=== PATIENT | female | born 1985 | race Caucasian/White ===

== ENCOUNTER 2016-10-15 02:49 | Inpatient (IN) | payer MEDICAID ==
[2016-10-15] MEDS ORDERED: Sodium Chloride 0.9% 10 ML Syringe FLUSH PRN (03:36)
[2016-10-15] MEDS ORDERED: Oxytocin/Lactated Ringers 10 UNIT/1,000 ML BAG IV ONE (03:38)
[2016-10-15] MEDS ORDERED: Lactated Ringers 1,000 ML IV SCH (03:45)
[2016-10-15] MEDS ORDERED: diphenhydrAMINE 50 MG/ML SDV IVPUSH PRN (04:10)
[2016-10-15] MEDS ORDERED: Ondansetron 4 MG/2 ML SDV IVPUSH PRN (04:10)
[2016-10-15] MEDS ORDERED: fentaNYL 100 MCG/2 ML SDV EPIDUR PRN (04:10)
--- NOTE | 2016-10-15 04:10 | PCM.PREANE ---
Preanesthetic Assessment - Procedure Proposed Procedure: Labor Epidural - Anesthesia/Transfusion/Family Hx Anesthesia History: Prior Anesthesia Without Reaction Type of Anesthesia Reaction: Unknown Family History of Anesthesia Reaction: No Transfusion History: No Prior Transfusion(s) Type of Transfusion Reactions: Reports: Unknown Intubation History: Unknown - Review of Systems General: No Symptoms Pulmonary: No Symptoms Cardiovascular: No Symptoms Gastrointestinal: Other (GERD with ) Neurological: No Symptoms Other: Reports: Diabetes (Gestational DM) - Physical Assessment NPO Status Date: 10/14/16 NPO Status Time: 23:00 Respiratory Rate: 20 Height: 1.8 m Weight: 90.718 kg ASA Class: 2 Mental Status: Alert & Oriented x3 Airway Class: Mallampati = 2 Dentition: Reports: Normal Dentition Thyro-Mental Finger Breadths: 3 Mouth Opening Finger Breadths: 3 ROM/Head Extension: Full Lungs: Clear to auscultation, Normal respiratory effort Cardiovascular: Regular Rate, Regular Rhythm - Lab Values: Laboratory Last Values WBC 18.39 K/mm3 (3.98-10.04) H 10/15/16 03:55 RBC 4.62 M/mm3 (3.98-5.22) 10/15/16 03:55 Hgb 13.5 gm/L (11.2-15.7) 10/15/16 03:55 Hct 40.6 % (34.1-44.9) 10/15/16 03:55 MCV 87.9 fl (79.4-94.8) 10/15/16 03:55 MCH 29.2 pg (25.6-32.2) 10/15/16 03:55 MCHC 33.3 g/dl (32.2-35.5) 10/15/16 03:55 RDW Std Deviation 48.4 fL (36.4-46.3) H 10/15/16 03:55 Plt Count 320 K/mm3 (182-369) 10/15/16 03:55 MPV 10.2 fl (9.4-12.3) 10/15/16 03:55 Neut % (Auto) 76.0 % (34.0-71.1) H 10/15/16 03:55 Lymph % (Auto) 15.8 % (19.3-51.7) L 10/15/16 03:55 [place] % (Auto) 6.6 % (4.7-12.5) 10/15/16 03:55 Eos % (Auto) 0.7 (0.7-5.8) 10/15/16 03:55 Baso % (Auto) 0.2 % (0.1-1.2) 10/15/16 03:55 Neut # (Auto) 13.99 K/mm3 (1.56-6.13) H 10/15/16 03:55 Lymph # (Auto) 2.91 K/mm3 (1.18-3.74) 10/15/16 03:55 [place] # (Auto) 1.22 K/mm3 (0.24-0.36) H 10/15/16 03:55 Eos # (Auto) 0.12 K/mm3 (0.04-0.36) 10/15/16 03:55 Baso # (Auto) 0.03 K/mm3 (0.01-0.08) 10/15/16 03:55 - Allergies Allergies/Adverse Reactions: Allergies Allergy/AdvReac Type Severity Reaction Status Date / Time ketorolac tromethamine Allergy Rash Verified 10/15/16 03:54 [From Toradol] tramadol Allergy Rash Verified 10/15/16 03:54 cobalt Allergy Other Uncoded 01/09/16 12:49 nickel Allergy Other Uncoded 01/09/16 12:49 - Blood Blood Available: No Product(s) Available: None - Anesthesia Plan Pre-Op Medication Ordered: None - Acknowledgements Anesthesia Type Planned: Epidural Pt an Appropriate Candidate for the Planned Anesthesia: Yes Alternatives and Risks of Anesthesia Discussed w Pt/Guardian: Yes Pt/Guardian Understands and Agrees with Anesthesia Plan: Yes PreAnesthesia Questionnaire - Past Health History Medical/Surgical History: Denies Medical/Surgical History Other Gastrointestinal History: Crohn's disease - Past Surgical History HEENT Surgical History: Reports: Tonsillectomy GI Surgical History: Reports: Appendectomy Other Oncologic Surgeries/Procedures: skin CA removed at age 11. - SUBSTANCE USE Smoking Status *Q: Former Smoker Tobacco Use Within Last Twelve Months: Cigarettes Second Hand Smoke Exposure: Yes Days Per Week of Alcohol Use: 0 Recreational Drug Use History: No - HOME MEDS Home Medications: Home Meds . [No Known Home Meds] 08/20/15 [History] Amoxicillin/Potassium Clav [Augmentin 875-125 Tablet] 1 each PO BID #20 tablet 01/09/16 [Rx] oxyCODONE HCl/Acetaminophen [Percocet 5-325 mg Tablet] 1 - 2 each PO Q6H PRN # 10 tablet 01/09/16 [Rx] - CURRENT (IN HOUSE) MEDS Current Meds: Current Medications Lactated Ringer's (Ringers, Lactated) 1,000 mls @ 100 mls/hr IV ASDIRECTED YASHIRA Oxytocin/Lactated Ringer's (Pitocin In Lr 10 Units/1,000 Ml) 10 unit in 1,000 mls @ 500 mls/hr IV ONETIME ONE Stop: 10/15/16 05:37 Sodium Chloride (Saline Flush) 10 ml FLUSH ASDIRECTED PRN PRN Reason: Keep Vein Open
[2016-10-15] MEDS ORDERED: Bupivacaine/fentaNYL/NS 100 ML Bag EPIDUR SCH (04:15)
--- NOTE | 2016-10-15 05:32 | PCM.LDHP ---
L&D History of Present Illness - General Date of Service: 10/15/16 Admit Problem/Dx: Admission Diagnosis/Problem Admission Diagnosis/Problem Normal Source of Information: Patient History Limitations: Reports: No Limitations - History of Present Illness Introduction:: Patient is a 31 y/o at 39 4/7 wks who presented in labor. Has just completed epidural. Feeling need to push. - Related Data Allergies/Adverse Reactions: Allergies Allergy/AdvReac Type Severity Reaction Status Date / Time ketorolac tromethamine Allergy Rash Verified 10/15/16 03:54 [From Toradol] tramadol Allergy Rash Verified 10/15/16 03:54 cobalt Allergy Other Uncoded 01/09/16 12:49 nickel Allergy Other Uncoded 01/09/16 12:49 Home Medications: Home Meds . 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 Social & Family History - Tobacco Use Smoking Status *Q: Former Smoker Years of Tobacco use: 10 Packs/Tins Daily: 0.3 Used Tobacco, but Quit: No Second Hand Smoke Exposure: Yes - Alcohol Use Alcohol Use History: No Days Per Week of Alcohol Use: 0 - Recreational Drug Use Recreational Drug Use: No H&P Review of Systems - Review of Systems: Review Of Systems: See Below General: Reports: No Symptoms Pulmonary: Reports: No Symptoms Cardiovascular: Reports: No Symptoms Gastrointestinal: Reports: Abdominal Pain (contractions) Genitourinary: Reports: No Symptoms Musculoskeletal: Reports: No Symptoms L&D Exam - Exam Exam: See Below - Vital Signs Vital Signs: Last Vital Signs Temp Pulse Resp 20 10/15/16 04:10 BP Pulse Ox Weight: 90.718 kg - OB Specific Contraction Intensity: Moderate to Strong Movement: Active Heart Tones: Present Heart Tones per Min: 115 Heart Rate (FHR) Variability: Moderate (6-25 bmp) Presentation: Vertex - Fox Score Fox Score Cervix Position: Anterior Fox Score Consistency: Soft Fox Score Effacement: >80% Fox Score Dilation: > 5 cm Fox Score 's Station: +1, +2 Fox Score Total: 13 - Exam General: Alert, Oriented, Cooperative Lungs: Clear to Auscultation, Normal Respiratory Effort Cardiovascular: Regular Rate, Regular Rhythm Abdomen: Soft Genitourinary: Normal external exam Back Exam: Normal Inspection Extremities: Normal Inspection Skin: Warm, Dry, Intact - Patient Data Lab Results last 24 hrs: Laboratory Results - last 24 hr 10/15/16 10/15/16 Range/Units 03:55 03:55 WBC 18.39 H (3.98-10.04) K/mm3 RBC 4.62 (3.98-5.22) M/mm3 Hgb 13.5 (11.2-15.7) gm/L Hct 40.6 (34.1-44.9) % MCV 87.9 (79.4-94.8) fl MCH 29.2 (25.6-32.2) pg MCHC 33.3 (32.2-35.5) g/dl RDW Std Deviation 48.4 H (36.4-46.3) fL Plt Count 320 (182-369) K/mm3 MPV 10.2 (9.4-12.3) fl Neut % (Auto) 76.0 H (34.0-71.1) % Lymph % (Auto) 15.8 L (19.3-51.7) % [place] % (Auto) 6.6 (4.7-12.5) % Eos % (Auto) 0.7 (0.7-5.8) Baso % (Auto) 0.2 (0.1-1.2) % Neut # (Auto) 13.99 H (1.56-6.13) K/mm3 Lymph # (Auto) 2.91 (1.18-3.74) K/mm3 [place] # (Auto) 1.22 H (0.24-0.36) K/mm3 Eos # (Auto) 0.12 (0.04-0.36) K/mm3 Baso # (Auto) 0.03 (0.01-0.08) K/mm3 Manual Slide Review Normal smear Blood Type AB POSITIVE Gel Antibody Screen Negative Result Diagrams: 10/15/16 03:55 - Problem List (1) 39 weeks gestation of SNOMED Code(s): 87956450 ICD Code: Z3A.39 - 39 WEEKS GESTATION OF Status: Acute Current Visit: Yes (2) Gestational diabetes SNOMED Code(s): 59390735 ICD Code: O24.419 - GESTATIONAL DIABETES MELLITUS IN , UNSP CONTROL Status: Acute Current Visit: Yes Qualifiers: Gestational diabetes mellitus control: diet-controlled Trimester: third trimester Qualified Code(s): O24.410 - Gestational diabetes mellitus in , diet controlled (3) Normal labor SNOMED Code(s): 13368865 ICD Code: O80 - ENCOUNTER FOR FULL-TERM UNCOMPLICATED DELIVERY; Z37.9 - OUTCOME OF DELIVERY, UNSPECIFIED Status: Acute Current Visit: Yes Problem List Initiated/Reviewed/Updated: Yes Orders Last 24hrs: Active Orders 24 hr Category Date Time Status Patient Status Manage Transfer [TRANSFER] Routine ADT 10/15/16 05:24 Ordered Activity as Tolerated [RC] PFP Care 10/15/16 03:37 Active Communication Order [RC] ASDIRECTED Care 10/15/16 03:37 Active Notify Provider [RC] PRN Care 10/15/16 03:37 Active Peripheral IV Care [RC] . DIRECTED Care 10/15/16 03:37 Active Vital Signs [RC] PER UNIT ROUTINE Care 10/15/16 03:37 Active PATIENT RETYPE [BBK] Routine Lab 10/15/16 03:55 Results TYPE AND SCREEN [BBK] Routine Lab 10/15/16 03:55 Results Bupivacaine/fentaNYL/NS [fentaNYL/Bupivacaine/NS 2 MCG- Med 10/15/16 04:15 Active 0.125% 100 ML] 100 ml EPIDUR ASDIRECTED Lactated Ringers [Ringers, Lactated] 1,000 ml Med 10/15/16 03:45 Active IV ASDIRECTED Ondansetron [Zofran] Med 10/15/16 04:10 Active 4 mg IVPUSH ONETIME PRN Oxytocin/Lactated Ringers [Pitocin in LR 10 Units/1,000 Med 10/15/16 03:38 Active ML] 10 unit in 1,000 ml IV ONETIME Sodium Chloride 0.9% [Saline Flush] Med 10/15/16 03:36 Active 10 ml FLUSH ASDIRECTED PRN diphenhydrAMINE [Benadryl] Med 10/15/16 04:10 Active 25 mg IVPUSH Q6H PRN fentaNYL [Sublimaze] Med 10/15/16 04:10 Active 100 mcg EPIDUR Q3H PRN Electronic Heart Tones Ext w TOCO [WOMSER] Oth 10/15/16 03:37 Ordered Routine Electronic Heart Tones Internal [WOMSER] Per Unit Oth 10/15/16 03:37 Ordered Routine Peripheral IV Insertion Adult [OM.PC] Routine Oth 10/15/16 03:37 Ordered Resuscitation Status Routine Resus Stat 10/15/16 03:36 Ordered Medication Orders Diphenhydramine HCl (Benadryl) 25 mg IVPUSH Q6H PRN PRN Reason: Pruritis Fentanyl (Sublimaze) 100 mcg EPIDUR Q3H PRN PRN Reason: Pain Fentanyl/Bupivacaine HCl (Fentanyl/Bupivacaine/Ns 2 Mcg-0.125% 100 Ml) 100 ml EPIDUR ASDIRECTED YASHIRA Lactated Ringer's (Ringers, Lactated) 1,000 mls @ 100 mls/hr IV ASDIRECTED YASHIRA Oxytocin/Lactated Ringer's (Pitocin In Lr 10 Units/1,000 Ml) 10 unit in 1,000 mls @ 500 mls/hr IV ONETIME ONE Stop: 10/15/16 05:37 Ondansetron HCl (Zofran) 4 mg IVPUSH ONETIME PRN PRN Reason: Nausea/Vomiting Sodium Chloride (Saline Flush) 10 ml FLUSH ASDIRECTED PRN PRN Reason: Keep Vein Open Assessment/Plan Comment:: 31 y/o at 39 4/7 wks who presented in labor - complete quickly after admission * CBC and T&S * No antibiotics, GBS neg * Epidural in place * Delivery imminent
--- NOTE | 2016-10-15 05:36 | PCM.DEL ---
L & D Note - General Info Date of Service: 10/15/16 - Delivery Note Labor: spontaneous Delivery Outcome: Livebirth Delivery Method: Spontaneous Vaginal Delivery Delivery Mode: Spontaneous Presentation: Right Occiput Anterior (AVERY) Nuchal cord: present (Not able to be reduced) Anesthesia Type: Epidural Amniotic Fluid Description: Meconium stained Episiotomy Type: None Laceration: none Placenta: intact, spontaneous Cord: 3 vessels Estimated blood loss: 250 Score 1 min: 8 Score 5 min: 9 Delivery Comments (Free Text/Narrative):: Patient found to be complete. With maternal pushing effort head delivered from an AVERY presentation. Nuchal cord present, but tight and not able to be reduced. With gentle downward traction shoulders and body delivered. Cord clamped and cut. Baby handed to awaiting simulation developer given meconium stained fluid. Placenta allowed time to separate and expelled . Inspection of the perineum showed no lacerations - Patient Data Vitals - most recent: Last Vital Signs Temp Pulse Resp 20 10/15/16 04:10 BP Pulse Ox Weight - most recent: 90.718 kg Lab Results last 24 hrs: Laboratory Results - last 24 hr 10/15/16 10/15/16 Range/Units 03:55 03:55 WBC 18.39 H (3.98-10.04) K/mm3 RBC 4.62 (3.98-5.22) M/mm3 Hgb 13.5 (11.2-15.7) gm/L Hct 40.6 (34.1-44.9) % MCV 87.9 (79.4-94.8) fl MCH 29.2 (25.6-32.2) pg MCHC 33.3 (32.2-35.5) g/dl RDW Std Deviation 48.4 H (36.4-46.3) fL Plt Count 320 (182-369) K/mm3 MPV 10.2 (9.4-12.3) fl Neut % (Auto) 76.0 H (34.0-71.1) % Lymph % (Auto) 15.8 L (19.3-51.7) % [place] % (Auto) 6.6 (4.7-12.5) % Eos % (Auto) 0.7 (0.7-5.8) Baso % (Auto) 0.2 (0.1-1.2) % Neut # (Auto) 13.99 H (1.56-6.13) K/mm3 Lymph # (Auto) 2.91 (1.18-3.74) K/mm3 [place] # (Auto) 1.22 H (0.24-0.36) K/mm3 Eos # (Auto) 0.12 (0.04-0.36) K/mm3 Baso # (Auto) 0.03 (0.01-0.08) K/mm3 Manual Slide Review Normal smear Blood Type AB POSITIVE Gel Antibody Screen Negative Med Orders - Current: Current Medications Diphenhydramine HCl (Benadryl) 25 mg IVPUSH Q6H PRN PRN Reason: Pruritis Fentanyl (Sublimaze) 100 mcg EPIDUR Q3H PRN PRN Reason: Pain Fentanyl/Bupivacaine HCl (Fentanyl/Bupivacaine/Ns 2 Mcg-0.125% 100 Ml) 100 ml EPIDUR ASDIRECTED YASHIRA Lactated Ringer's (Ringers, Lactated) 1,000 mls @ 100 mls/hr IV ASDIRECTED YASHIRA Oxytocin/Lactated Ringer's (Pitocin In Lr 10 Units/1,000 Ml) 10 unit in 1,000 mls @ 500 mls/hr IV ONETIME ONE Stop: 10/15/16 05:37 Ondansetron HCl (Zofran) 4 mg IVPUSH ONETIME PRN PRN Reason: Nausea/Vomiting Sodium Chloride (Saline Flush) 10 ml FLUSH ASDIRECTED PRN PRN Reason: Keep Vein Open - Problem List & Annotations (1) 39 weeks gestation of SNOMED Code(s): 66196096 Code(s): Z3A.39 - 39 WEEKS GESTATION OF Status: Acute Current Visit: Yes (2) Gestational diabetes SNOMED Code(s): 94033329 Code(s): O24.419 - GESTATIONAL DIABETES MELLITUS IN , UNSP CONTROL Status: Acute Current Visit: Yes Qualifiers: Gestational diabetes mellitus control: diet-controlled Trimester: third trimester Qualified Code(s): O24.410 - Gestational diabetes mellitus in , diet controlled (3) Normal labor SNOMED Code(s): 05285238 Code(s): O80 - ENCOUNTER FOR FULL-TERM UNCOMPLICATED DELIVERY; Z37.9 - OUTCOME OF DELIVERY, UNSPECIFIED Status: Acute Current Visit: Yes (4) Vaginal delivery SNOMED Code(s): 876921721 Code(s): O80 - ENCOUNTER FOR FULL-TERM UNCOMPLICATED DELIVERY Status: Acute Current Visit: Yes - Problem List Review Problem List Initiated/Reviewed/Updated: Yes - My Orders Last 24 Hours: My Active Orders 10/15/16 03:36 Sodium Chloride 0.9% [Saline Flush] 10 ml FLUSH ASDIRECTED PRN Resuscitation Status Routine 10/15/16 03:37 Activity as Tolerated [RC] PFP Communication Order [RC] ASDIRECTED Notify Provider [RC] PRN Peripheral IV Care [RC] . DIRECTED Vital Signs [RC] PER UNIT ROUTINE Electronic Heart Tones Ext w TOCO [WOMSER] Routine Electronic Heart Tones Internal [WOMSER] Per Unit Routine Peripheral IV Insertion Adult [OM.PC] Routine 10/15/16 03:38 Oxytocin/Lactated Ringers [Pitocin in LR 10 Units/1,000 ML] 10 unit in 1,000 ml IV ONETIME 10/15/16 03:45 Lactated Ringers [Ringers, Lactated] 1,000 ml IV ASDIRECTED 10/15/16 03:55 PATIENT RETYPE [BBK] Routine TYPE AND SCREEN [BBK] Routine 10/15/16 05:24 Patient Status Manage Transfer [TRANSFER] Routine - Assessment Assessment:: 31 y/o G2 now P2002 PPD#0 from at 39 4/7 wks - Plan Plan:: * Fasting glucose tomorrow given history of GODMA, 2hr GTT at check * Routine cares * Encourage breast feeding
[2016-10-15] MEDS ORDERED: Acetaminophen 325 MG Tab PO PRN (06:08)
[2016-10-15] MEDS ORDERED: Docusate Sodium 100 MG Cap PO PRN (06:08)
[2016-10-15] MEDS: Ibuprofen 600 MG Tab PO PRN ×2 (09:10→14:22)
[2016-10-15] MEDS ORDERED: Witch Hazel Medicated Pads 100/Jar TOP PRN (09:30)
[2016-10-15] MEDS ORDERED: Benzocaine/Menthol 20%-0.5% Spray 56 GM Canister TOP PRN (09:30)
[2016-10-15] MEDS ORDERED: Bupivacaine 0.25% 10 ML SDV ONE (12:00)
--- NOTE | 2016-10-15 12:32 | PCM48HPAN ---
Post Anesthesia Note - EVALUATION WITHIN 48HRS OF ANESTHETIC Vital Signs in Normal Range: Yes Patient Participated in Evaluation: Yes Respiratory Function Stable: Yes Airway Patent: Yes Cardiovascular Function Stable: Yes Hydration Status Stable: Yes Pain Control Satisfactory: Yes Nausea and Vomiting Control Satisfactory: Yes Mental Status Recovered: Yes
[2016-10-15] MEDS: Acetaminophen/oxyCODONE 325-5 MG Tab PO PRN ×2 (16:36→20:47)
[2016-10-15] MEDS ORDERED: Lanolin 100% Cream 7 GM Tube TOP PRN (23:59)
[2016-10-16] MEDS: Acetaminophen/oxyCODONE 325-5 MG Tab PO PRN ×3 (00:49→10:52)
--- NOTE | 2016-10-16 07:40 | PCM.DCSUM1 ---
Discharge Summary - Hospital Course Free Text/Narrative:: Mark is a 31-year-old multigravida female who delivered on 10/15/2016. She delivered a viable male infant with Apgars of 8 and 9. She delivered in a spontaneous fashion with baby in a right occiput anterior position. She used epidural analgesia for pain control. The MX fluid was stained. She had no episiotomy [place] any lacerations. The umbilical cord was found to be moderately tight and was not reducible over the baby's head. Baby delivered without problems otherwise and the cord was clamped after delivery. 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 Umbilical cord had 3 vessels. Placenta appeared intact and complete. the patient has done well. She has struggled somewhat was nursing until just last one or 2 times. She did nurse with her first . She has had minimal lochia, is voiding well and has recovered from the epidural. She is desiring to be discharged home. - Discharge Data Discharge Date: 10/16/16 Discharge Disposition: Home, Self-Care 01 Condition: Good - Patient Instructions Diet: Regular Diet as Tolerated (Nursing diet with increase calories and calcium as directed) Activity: As Tolerated (No intercourse or tampons until bleeding resolves.) Driving: Do Not Drive (Not drive until feels adequately prepared to drive.) Showering/Bathing: May Shower (May take a bath the) Notify Provider of: Fever, Increased Pain, Swelling and Redness, Nausea and/or Vomiting - Discharge Plan Home Medications: Home Meds Acetaminophen/oxyCODONE [Percocet 325-5 MG] 2 tab PO Q4H PRN #20 tablet [Rx] Ibuprofen [IJD: Ibuprofen] 600 mg PO Q4H PRN #30 tablet 10/16/16 [Rx] Witch Charline [Tucks] 1 pad TOP ASDIRECTED PRN #30 pad 10/16/16 [Rx] Referrals: Joanie Phillips MD [Primary Care Provider] - (Return to see Dr. Phillips in 6 weeks.) - Discharge Summary/Plan Comment DC Time >30 min.: No Discharge Summary/Plan Comment: Discharge instructions: 1. Discharge home 2. Regular, high fiber, nursing diet with increase calories and calcium as directed. 3. Routine followup discussed with patient in detail. 4. Precautions given concern increased pain, bleeding, temperature, signs/ symptoms of DVT/PE 5. Medications per home medication as printed, discussed with and given to the patient 6. Return to clinic-Dr. Phillips at 6 weeks. Condition: Good Diagnosis: 39 week -delivered - Patient Data Vitals - Most Recent: Last Vital Signs Temp 36.6 C 10/16/16 04:20 Pulse 63 10/16/16 04:20 Resp 22 H 10/16/16 04:20 BP 100/54 L 10/16/16 04:20 Pulse Ox 97 10/16/16 04:20 Weight - Most Recent: 90.718 kg I&O - Last 24 hours: Intake & Output 10/15/16 10/16/16 10/16/16 22:59 06:59 14:59 Intake Total 0 Balance 0 Lab Results - Last 24 hrs: Laboratory Results - last 24 hr 10/15/16 10/16/16 Range/Units 03:55 06:30 POC Glucose 87 (70-105) mg/dL Blood Type AB POSITIVE Gel Antibody Screen Negative Med Orders - Current: Current Medications Benzocaine/Menthol (Dermoplast Pain Relief [place]) 1 gm TOP ASDIRECTED PRN PRN Reason: Pain Last Admin: 10/15/16 09:32 Dose: 1 applic Docusate Sodium (Colace) 100 mg PO BID PRN PRN Reason: Constipation Emollient Ointment (Lansinoh Hpa) 0 gm TOP ASDIRECTED PRN PRN Reason: Sore nipples Last Admin: 10/16/16 00:13 Dose: 1 tube Ibuprofen (Motrin) 600 mg PO Q4H PRN PRN Reason: Pain Last Admin: 10/15/16 14:22 Dose: 600 mg Oxycodone/Acetaminophen (Percocet 325-5 Mg) 2 tab PO Q4H PRN PRN Reason: Pain Last Admin: 10/16/16 05:33 Dose: 2 tab Witch Charline (Tucks) 1 pad TOP ASDIRECTED PRN PRN Reason: Pain Last Admin: 10/15/16 09:33 Dose: 1 applic Discontinued Medications Acetaminophen (Tylenol) 650 mg PO Q4H PRN PRN Reason: mild pain or fever Last Admin: 10/15/16 12:29 Dose: 650 mg Diphenhydramine HCl (Benadryl) 25 mg IVPUSH Q6H PRN PRN Reason: Pruritis Fentanyl (Sublimaze) 100 mcg EPIDUR Q3H PRN PRN Reason: Pain Fentanyl/Bupivacaine HCl (Fentanyl/Bupivacaine/Ns 2 Mcg-0.125% 100 Ml) 100 ml EPIDUR ASDIRECTED YASHIRA Lactated Ringer's (Ringers, Lactated) 1,000 mls @ 100 mls/hr IV ASDIRECTED [facility] Last Admin: 10/15/16 03:00 Dose: 100 mls/hr Oxytocin/Lactated Ringer's (Pitocin In Lr 10 Units/1,000 Ml) 10 unit in 1,000 mls @ 500 mls/hr IV ONETIME ONE Stop: 10/15/16 05:37 Last Admin: 10/15/16 05:07 Dose: 500 mls/hr Ondansetron HCl (Zofran) 4 mg IVPUSH ONETIME PRN PRN Reason: Nausea/Vomiting Sodium Chloride (Saline Flush) 10 ml FLUSH ASDIRECTED PRN PRN Reason: Keep Vein Open *Q Meaningful Use (DIS) - VTE *Q VTE Criteria *Q: - Stroke *Q Stroke Criteria *Q: - AMI *Q AMI Criteria *Q:
[2016-10-16 14:48] VITALS: BP 124/67
== END 2016-10-16 13:50 | disposition home or self-care (01) | DRG 775 ==
LOC: JD.OBCHECK 02:49 → JD.OB 02:53 → JD.OBCHECK 03:43 → JD.OB 03:44 → OBSVTOIN 05:07 → JD.OB 05:07
PROVIDERS: ADMIT Obstetrics & Gynecology; ATTEND Obstetrics & Gynecology
PROC: 10E0XZZ Delivery of Products of Conception, External Approach (ICD-10-PCS; principal; 2016-10-15)
DX: O24.420 Gestational diabetes mellitus in childbirth, diet controlled (principal); O69.1XX0 Labor and delivery complicated by cord around neck, with compression, not applicable or unspecified; O77.0 Labor and delivery complicated by meconium in amniotic fluid; Z3A.39 39 weeks gestation of pregnancy; Z37.0 Single live birth
CPT/HCPCS: 01967; 36415; 82962; 85025; 86850; 86900; 86901; A9270-GY; J2590; J7120

== ENCOUNTER 2017-03-26 19:40 | Emergency (ER) | payer MEDICAID ==
[2017-03-26 20:23] VITALS: BP 126/89
--- NOTE | 2017-03-26 21:37 | EDM.PDOC ---
ED HPI GENERAL MEDICAL PROBLEM - General Chief Complaint: ENT Problem Stated Complaint: TOOTH PAIN Time Seen by Provider: 03/26/17 21:19 Source of Information: Reports: Patient History Limitations: Reports: No Limitations - History of Present Illness INITIAL COMMENTS - FREE TEXT/NARRATIVE: Patient is a 31 y/o female who presents to the E.D. complaining of intermittent pain to the #29 tooth. Feels a nerve is exposed. Has been taking ibuprofen and tylenol with no improvements. Left Lower Tooth/Teeth Pain Score (Numeric/FACES): 8 - Related Data Allergies Allergy/AdvReac Type Severity Reaction Status Date / Time ketorolac tromethamine Allergy Rash Verified 10/15/16 03:54 [From Toradol] tramadol Allergy Rash Verified 10/15/16 03:54 cobalt Allergy Other Uncoded 01/09/16 12:49 nickel Allergy Other Uncoded 01/09/16 12:49 Home Meds: Home Meds Naproxen 500 mg PO BID #14 tablet 03/26/17 [Rx] Past Medical History - Past Health History Medical/Surgical History: Denies Medical/Surgical History Other Gastrointestinal History: Crohn's disease [employer] G[employer] History: Reports: - Past Surgical History HEENT Surgical History: Reports: Tonsillectomy GI Surgical History: Reports: Appendectomy, Colonoscopy, EGD Other Oncologic Surgeries/Procedures: skin CA removed at age 11. Social & Family History - Tobacco Use Smoking Status *Q: Current Every Day Smoker Years of Tobacco use: 10 Packs/Tins Daily: 0.5 Used Tobacco, but Quit: No Second Hand Smoke Exposure: Yes - Caffeine Use Caffeine Use: Reports: Tea - Alcohol Use Days Per Week of Alcohol Use: 0 - Recreational Drug Use Recreational Drug Use: No ED ROS ENT - Review of Systems Review Of Systems: See Below Constitutional: Reports: Decreased Appetite. Denies: Fever, Chills HEENT: Reports: Dental Pain GI/Abdominal: Denies: Nausea, Vomiting Musculoskeletal: Denies: Neck Pain Neurological: Denies: Headache ED EXAM, ENT - Physical Exam Exam: See Below Exam Limited By: No Limitations General Appearance: Alert, WD/WN, No Apparent Distress Ears: Hearing Grossly Normal Nose: Normal Inspection Mouth/Throat: Normal Inspection, Normal Gums, Normal Oropharynx, Dental Pain (# 29 tooth.), Dental Tenderness (#29 tooth). No: Dry Mucous Membrane, Gum Swelling, Pharyngeal Erythema, Tonsillar Erythema, Tonsillar Exudates, Trismus Head: Atraumatic, Normocephalic Neck: Normal Inspection, Supple Respiratory/Chest: No Respiratory Distress, No Accessory Muscle Use Neurological: Alert, Oriented, Normal Cognition Psychiatric: Normal Affect, Normal Mood Skin: Warm, Dry, Intact, Normal Color Course - Vital Signs Last Recorded V/S: Last Vital Signs Temp 98.6 F 03/26/17 20:22 Pulse 88 03/26/17 20:22 Resp 20 03/26/17 20:22 BP 126/89 03/26/17 20:22 Pulse Ox 97 03/26/17 20:22 - Re-Assessments/Exams Free Text/Narrative Re-Assessment/Exam: Patient has dental tenderness to the superior aspect of the tooth with gentle pressure with a tongue depressor. Patient does have some dental decay throughout her mouth. No gumline swelling. No concerns for an abscess at this point. Offered dental injection to which the patient refuses. Will discharge patient home with prescription for naproxen. She will call a dentist on Tuesday to schedule definitive treatment. Patient requested something stronger for the discomfort. At this point patient is doing well has intermittent sharp shooting sensation to the affected tooth. Instructed her to use Orajel and or clove oil. No narcotics will be discharged with the patient. Departure - Departure Time of Disposition: 21:35 Disposition: Home, Self-Care 01 Condition: Good Clinical Impression: Acute pulpitis - Discharge Information Prescriptions: Naproxen 500 mg PO BID #14 tablet Instructions: Tooth Injuries Referrals: PCP,None [Primary Care Provider] - Forms: ED Department Discharge Additional Instructions: Taken naproxen 500 mg twice a day with plenty of fluids and food. Refrain from chewing on the affected side. For additional pain relief can utilize Orajel and/ or clove oil. Call and make an appointment Tuesday with a dentist to be evaluated SHELIA for definitive treatment. See her PCP for further pain management. Return to ED for any new or worsening symptoms. Take tylenol 650mg every 6 hours for pain in addition to naproxen.
== END 2017-03-26 21:48 | disposition home or self-care (01) ==
LOC: JD.ED 19:40
DX: K04.01 Reversible pulpitis (principal); F17.210 Nicotine dependence, cigarettes, uncomplicated; Z88.6 Allergy status to analgesic agent; Z88.5 Allergy status to narcotic agent
CPT/HCPCS: 99282; 99283

== ENCOUNTER 2018-10-26 11:03 | Emergency (ER) | payer BC, MEDICAID ==
[2018-10-26 11:27] VITALS: BP 124/85
[2018-10-26] MEDS ORDERED: Ketorolac 60 MG/2 ML SDV IM ONE (12:07)
--- NOTE | 2018-10-26 12:12 | EDM.PDOC ---
ED HPI GENERAL MEDICAL PROBLEM - General Chief Complaint: General Stated Complaint: TOOTH PAIN Time Seen by Provider: 10/26/18 12:11 Source of Information: Reports: Patient History Limitations: Reports: No Limitations - History of Present Illness INITIAL COMMENTS - FREE TEXT/NARRATIVE: 33-year-old female presents for evaluation and treatment of tooth pain. Patient reports she has been experiencing dental pain since Tuesday. She states that she has some cracked teeth on the left upper side that cracked several months ago. Since Tuesday she has been experiencing pain to this area. She reports associated symptoms of nausea, dizziness, headaches, sore throat, sinus pain and facial swelling. She's not been to a dentist in several years and has no appointment at this point. She denies any bad taste in her mouth, fevers, chills , vomiting or any ear pain. Left Upper Cheek Pain Score (Numeric/FACES): 8 - Related Data Allergies Allergy/AdvReac Type Severity Reaction Status Date / Time No Known Allergies Allergy Verified 10/26/18 11:28 Home Meds: Home Meds Amoxicillin/Clavulanate K [Augmentin 875-125 MG] 1 tab PO BID #20 tab 10/26/18 [ Rx] Naproxen 500 mg PO BID PRN #14 tablet 10/26/18 [Rx] Past Medical History - Past Health History Medical/Surgical History: Denies Medical/Surgical History Other Gastrointestinal History: Crohn's disease [employer] History: Reports: - Past Surgical History HEENT Surgical History: Reports: Tonsillectomy GI Surgical History: Reports: Appendectomy, Colonoscopy, EGD Other Oncologic Surgeries/Procedures: skin CA removed at age 11. Social & Family History - Tobacco Use Smoking Status *Q: Unknown Ever Smoked - Caffeine Use Caffeine Use: Reports: Tea ED ROS GENERAL - Review of Systems Review Of Systems: See Below Constitutional: Denies: Fever, Chills HEENT: Reports: Dental Pain (left upper ), Sinus Problem, Throat Pain. Denies: Ear Pain GI/Abdominal: Reports: Nausea. Denies: Vomiting ED EXAM, GENERAL - Physical Exam Exam: See Below Exam Limited By: No Limitations General Appearance: Alert, WD/WN, No Apparent Distress Throat/Mouth: Normal Inspection, Normal Voice, No Airway Compromise, Other ( overall poor dentition, multiple fractured teeth, multiple carries; pain to #11 and 12, surrounding gum swelling, these teeth are fractured with extensive carries) Neck: Normal Inspection. No: Lymphadenopathy (L), Lymphadenopathy (R) Respiratory/Chest: No Respiratory Distress, Lungs Clear, Normal Breath Sounds Cardiovascular: Normal Peripheral Pulses, Regular Rate, Rhythm, No Murmur Neurological: Alert, Oriented, Normal Cognition Psychiatric: Normal Affect, Normal Mood Skin Exam: Warm, Dry, Normal Color Course - Vital Signs Last Recorded V/S: Last Vital Signs Temp 98.5 F 10/26/18 11:26 Pulse 87 10/26/18 11:26 Resp 18 10/26/18 11:26 BP 124/85 10/26/18 11:26 Pulse Ox 99 10/26/18 11:26 - Orders/Labs/Meds Meds: Medications Discontinued Medications Generic Name Dose Route Start Last Admin Trade Name Freq PRN Reason Stop Dose Admin Ketorolac Tromethamine 60 mg 10/26/18 12:07 10/26/18 12:19 Toradol IM 10/26/18 12:08 Not Given ONETIME ONE Departure - Departure Time of Disposition: 12:14 Disposition: Home, Self-Care 01 Condition: Fair Clinical Impression: Dental caries Fracture of tooth Qualifiers: Encounter type: sequela Fracture type: open Qualified Code(s): S02.5XXS - Fracture of tooth (traumatic), sequela - Discharge Information *PRESCRIPTION DRUG MONITORING PROGRAM REVIEWED*: Yes *COPY OF PRESCRIPTION DRUG MONITORING REPORT IN PATIENT LENA: No Prescriptions: Amoxicillin/Clavulanate K [Augmentin 875-125 MG] 1 tab PO BID #20 tab Naproxen 500 mg PO BID PRN #14 tablet PRN Reason: Pain Referrals: Deb Esquivel NP [Primary Care Provider] - Forms: ED Department Discharge Additional Instructions: Follow-up with a dentist as soon as you are able to. A list of local dentist has been provided for you. If costs is a concern recommend [facility] in [place] call [phone] to schedule with them. Recommend clove oil or orajel for additional pain relief. May take OTC tylenol as needed for pain relief. May take naproxen 1 tab PO bid prn pain. Take the augmentin as prescribed. 1 tab PO bid, take with food. Please return to the ER should your symptoms change or worsen.
== END 2018-10-26 12:27 | disposition home or self-care (01) ==
LOC: JD.ED 11:03
DX: K03.81 Cracked tooth (principal); K02.9 Dental caries, unspecified; K50.90 Crohn's disease, unspecified, without complications
CPT/HCPCS: 99282; 99283

== ENCOUNTER 2019-03-25 23:09 | Emergency (ER) | payer BC ==
[2019-03-25 23:19] VITALS: BP 118/72; PULSE 90
--- NOTE | 2019-03-25 23:22 | EDM.PDOC ---
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 Patient is 18 weeks she is a 3 para 2. Her other pregnancies with full-term without difficulty. Patient complains of upper abdominal discomfort on the left side. Patient does have a history of Crohn's disease but this is much different than her Crohn's. This pain started around 4:00 this afternoon she did not eat anything unusual before this. She denies any nausea vomiting constipation diarrhea fevers or chills. She has not had any cramping contractions are vaginal discharge spotting or bleeding. 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 Social & Family History - Caffeine Use Caffeine Use: Reports: Tea ED ROS GENERAL - Review of Systems Review Of Systems: See Below Constitutional: Reports: No Symptoms HEENT: Reports: No Symptoms Respiratory: Reports: No Symptoms Cardiovascular: Reports: No Symptoms GI/Abdominal: Reports: Abdominal Pain. Denies: Constipation, Diarrhea, Nausea, Other : Reports: No Symptoms Musculoskeletal: Reports: No Symptoms Skin: Reports: No Symptoms Neurological: Reports: No Symptoms Psychiatric: Reports: No Symptoms ED EXAM - Physical Exam Exam: See Below Exam Limited By: No Limitations General Appearance: Alert, No Apparent Distress Head: Atraumatic, Normocephalic Neck: Normal Inspection, Supple, Non-Tender, Full Range of Motion Respiratory/Chest: No Respiratory Distress, Lungs Clear, Normal Breath Sounds Cardiovascular: Regular Rate, Rhythm, No Edema, No Murmur GI/Abdominal Exam: Normal Bowel Sounds, Soft, Tender (Symptoms the left upper quadrant coming down from the epigastric area. Fundal height this 2-3 cm below the umbilicus). No: Non-Tender Heart Tones per Min: 160 Back Exam: Normal Inspection. No: CVA Tenderness (L), CVA Tenderness (R) Neurological: Alert, Oriented, Normal Cognition Skin Exam: Warm, Dry, Intact Course - Vital Signs Last Recorded V/S: Last Vital Signs Temp 36.8 C 03/25/19 23:17 Pulse 90 03/25/19 23:17 Resp 18 03/25/19 23:17 BP 118/72 03/25/19 23:17 Pulse Ox 100 03/25/19 23:17 - Orders/Labs/Meds Orders: Active Orders 24 hr Category Date Time Status CULTURE URINE [RM] Stat Lab 03/25/19 23:39 Received Labs: Laboratory Tests 03/25/19 03/26/19 03/26/19 Range/Units 23:39 00:15 00:15 WBC 15.21 H (3.98-10.04) K/mm3 RBC 3.77 L (3.98-5.22) M/mm3 Hgb 11.9 D (11.2-15.7) gm/dl Hct 35.3 (34.1-44.9) % MCV 93.6 D (79.4-94.8) fl MCH 31.6 (25.6-32.2) pg MCHC 33.7 (32.2-35.5) g/dl RDW Std Deviation 48.3 H (36.4-46.3) fL Plt Count 265 (182-369) K/mm3 MPV 9.6 (9.4-12.3) fl Neutrophils % (Manual) 65 H (40-60) % Band Neutrophils % 1 (0-10) % Lymphocytes % (Manual) 31 (20-40) % Atypical Lymphs % 0 % Monocytes % (Manual) 3 (2-10) % Eosinophils % (Manual) 0 L (0.7-5.8) % Basophils % (Manual) 0 L (0.1-1.2) Platelet Estimate Adequate Plt Morphology Comment Normal RBC Morph Comment Normal Sodium 138 (136-145) mEq/L Potassium 3.6 (3.5-5.1) mEq/L Chloride 104 (98-107) mEq/L Carbon Dioxide 23 (21-32) mEq/L Anion Gap 14.6 (5-15) BUN 12 (7-18) mg/dL Creatinine 0.8 (0.55-1.02) mg/dL Est Cr Clr Drug Dosing TNP Estimated GFR (MDRD) > 60 (>60) mL/min BUN/Creatinine Ratio 15.0 (14-18) Glucose 93 (74-106) mg/dL Calcium 8.8 (8.5-10.1) mg/dL Total Bilirubin 0.2 (0.2-1.0) mg/dL AST 11 L (15-37) U/L ALT 13 L (14-59) U/L Alkaline Phosphatase 62 (46-116) U/L Total Protein 5.7 L (6.4-8.2) g/dl Albumin 2.9 L (3.4-5.0) g/dl Globulin 2.8 gm/dL Albumin/Globulin Ratio 1.0 (1-2) Urine Color Yellow (Yellow) Urine Appearance Clear (Clear) Urine pH 6.0 (5.0-8.0) Ur Specific [place] > or = 1.030 (1.005-1.030) Urine Protein Negative (Negative) Urine Glucose (UA) Negative (Negative) Urine Ketones Negative (Negative) Urine Occult Blood Negative (Negative) Urine Nitrite Negative (Negative) Urine Bilirubin Negative (Negative) Urine Urobilinogen 0.2 (0.2-1.0) Ur Leukocyte Esterase Trace H (Negative) Urine RBC 0-5 (0-5) /hpf Urine WBC 5-10 H (0-5) /hpf Ur Squamous Epith Cells 5-10 H (0-5) /hpf Urine Bacteria Moderate H (FEW) /hpf Urine Mucus Many H (FEW) /hpf Meds: Medications Discontinued Medications Generic Name Dose Route Start Last Admin Trade Name Freq PRN Reason Stop Dose Admin Nitrofurantoin Macrocrystals 100 mg 03/26/19 01:22 Macrobid PO 03/26/19 01:23 ONETIME ONE Sucralfate 1 gm 03/25/19 23:38 03/25/19 23:43 Carafate PO 03/25/19 23:39 1 gm ONETIME ONE Administration - Re-Assessments/Exams Free Text/Narrative Re-Assessment/Exam: 03/26/19 01:16 Patient had some improvement with Carafate however she still has some discomfort especially when she changes position which makes me think she may have a component of abdominal wall strain or injury. At this point we'll discharge on Carafate for a week to see if this helps Tylenol for the muscle strain in her urine looks like she may be coming down with a bladder infection trace leukocyte esterase. Departure - Departure Time of Disposition: :18 Disposition: Home, Self-Care 01 Clinical Impression: Dyspepsia, Abdominal wall strain, UTI (urinary tract infection), Second trimester - Discharge Information Prescriptions: Nitrofurantoin Monohyd/M-Cryst [Macrobid 100 mg Capsule] 100 mg PO Q12H #13 capsule Sucralfate [Carafate] 1 gm PO QIDPCANDBED #28 tablet Referrals: Joanie Phillips MD [Primary Care Provider] - Forms: ED Department Discharge Additional Instructions: Return to the emergency room with any questions problems or worsening symptoms. Take the Carafate before each meal and at bedtime for one week and then as directed by your regular physician. Take the antibiotics until all gone. Follow-up with Dr. Phillips this coming week. - My Orders Last 24 Hours: My Active Orders 03/25/19 23:39 CULTURE URINE [RM] Stat - Assessment/Plan Last 24 Hours: My Active Orders 03/25/19 23:39 CULTURE URINE [RM] Stat
[2019-03-25] MEDS ORDERED: Sucralfate Suspension 1 GM/10 ML Cup PO ONE (23:38)
[2019-03-26] MEDS ORDERED: Nitrofurantoin Monohydrate/Macrocrystalline 100 MG Cap PO ONE (01:22)
== END 2019-03-26 01:34 | disposition home or self-care (01) ==
LOC: JD.ED 23:09
DX: O9A.212 Injury, poisoning and certain other consequences of external causes complicating pregnancy, second trimester (principal); S39.011A Strain of muscle, fascia and tendon of abdomen, initial encounter; O23.42 Unspecified infection of urinary tract in pregnancy, second trimester; R10.13 Epigastric pain; X58.XXXA Exposure to other specified factors, initial encounter; Z3A.18 18 weeks gestation of pregnancy
CPT/HCPCS: 36415; 80053; 81001; 85007; 85027; 87086; 99284; A9270; 99283

== ENCOUNTER 2019-08-30 07:42 | Inpatient (IN) | payer BC ==
[~2019-08-30 07:42] MED LIST: Bupivacaine 0.25% 10 ML SDV ONE; Lidocaine 1.5% with EPINEPHrine 1:200,000 5 ML Amp ONE
[2019-08-30] MEDS ORDERED: Sodium Chloride 0.9% 10 ML Syringe FLUSH PRN (08:23)
[2019-08-30] MEDS ORDERED: Calcium Carbonate 500 MG Tab.Chew PO PRN (08:23)
[2019-08-30] MEDS ORDERED: Ondansetron 4 MG/2 ML SDV IVPUSH PRN ×2 (08:23→09:38)
[2019-08-30] MEDS ORDERED: Nalbuphine 10 MG/ML Syringe IVPUSH PRN (08:23)
[2019-08-30] MEDS ORDERED: Acetaminophen 325 MG Tab PO PRN ×2 (08:23→23:36)
[2019-08-30] MEDS ORDERED: Oxytocin/Lactated Ringers 10 UNIT/1,000 ML BAG IV SCH ×2 (08:30)
[2019-08-30] MEDS ORDERED: ePHEDrine 50 MG/ML SDV IVPUSH PRN (09:38)
--- NOTE | 2019-08-30 09:41 | PCM.PREANE ---
Preanesthetic Assessment - Anesthesia/Transfusion/Family Hx Anesthesia History: Prior Anesthesia Without Reaction Family History of Anesthesia Reaction: No Transfusion History: No Prior Transfusion(s) Intubation History: Unknown - Review of Systems General: No Symptoms Pulmonary: No Symptoms (quit smoking one month ago.) Cardiovascular: No Symptoms Gastrointestinal: No Symptoms (History of Crohn's Disease, GERD) Neurological: No Symptoms (history of vertigo and motion sickness) Other: Reports: Easy Bruising, Diabetes (History of gestational DM, currently none noted.), Depression - Physical Assessment NPO Status Date: 08/30/19 NPO Status Time: 00:01 Vital Signs: Last Vital Signs Temp 36.5 C 08/30/19 08:42 Pulse 85 08/30/19 08:42 Resp 14 08/30/19 08:42 BP 113/62 08/30/19 08:42 Pulse Ox Height: 1.8 m Weight: 103.102 kg ASA Class: 2 Mental Status: Alert & Oriented x3 Airway Class: Mallampati = 2 Dentition: Reports: Broken Tooth/Teeth, Missing Tooth/Teeth (very poor dentition noted/ loose botom lower right noted by patient.), Caries Thyro-Mental Finger Breadths: 3 Mouth Opening Finger Breadths: 3 ROM/Head Extension: Full Lungs: Clear to Auscultation, Normal Respiratory Effort Cardiovascular: Regular Rate, Regular Rhythm, No Murmurs - Lab Values: Laboratory Last Values WBC 11.61 K/mm3 (3.98-10.04) H 08/30/19 08:40 RBC 3.92 M/mm3 (3.98-5.22) L 08/30/19 08:40 Hgb 11.3 gm/dl (11.2-15.7) 08/30/19 08:40 Hct 35.6 % (34.1-44.9) 08/30/19 08:40 MCV 90.8 fl (79.4-94.8) 08/30/19 08:40 MCH 28.8 pg (25.6-32.2) 08/30/19 08:40 MCHC 31.7 g/dl (32.2-35.5) L 08/30/19 08:40 RDW Std Deviation 50.7 fL (36.4-46.3) H 08/30/19 08:40 Plt Count 302 K/mm3 (182-369) 08/30/19 08:40 MPV 10.2 fl (9.4-12.3) 08/30/19 08:40 Neut % (Auto) 70.7 % (34.0-71.1) 08/30/19 08:40 Lymph % (Auto) 19.6 % (19.3-51.7) 08/30/19 08:40 Lewis % (Auto) 7.1 % (4.7-12.5) 08/30/19 08:40 Eos % (Auto) 1.8 (0.7-5.8) 08/30/19 08:40 Baso % (Auto) 0.3 % (0.1-1.2) 08/30/19 08:40 Neut # (Auto) 8.21 K/mm3 (1.56-6.13) H 08/30/19 08:40 Lymph # (Auto) 2.28 K/mm3 (1.18-3.74) 08/30/19 08:40 Lewis # (Auto) 0.82 K/mm3 (0.24-0.36) H 08/30/19 08:40 Eos # (Auto) 0.21 K/mm3 (0.04-0.36) 08/30/19 08:40 Baso # (Auto) 0.03 K/mm3 (0.01-0.08) 08/30/19 08:40 Above labs reviewed and noted and within acceptable ranges to proceed with epidural if desired. - Allergies Allergies/Adverse Reactions: Allergies Allergy/AdvReac Type Severity Reaction Status Date / Time bacitracin Allergy Rash Verified 08/30/19 08:38 [From Neosporin ([id number])] hydrocortisone Allergy Rash Verified 08/30/19 08:38 [From Cortizone-10] ketorolac [From Toradol] Allergy Hives Verified 08/30/19 08:38 neomycin Allergy Rash Verified 08/30/19 08:38 [From Neosporin ([id number])] polymyxin B Allergy Rash Verified 08/30/19 08:38 [From Neosporin ([id number])] tramadol Allergy Hives Verified 08/30/19 08:38 metals Allergy Rash Uncoded 08/30/19 08:38 - Anesthesia Plan Pre-Op Medication Ordered: None - Acknowledgements Anesthesia Type Planned: Epidural Pt an Appropriate Candidate for the Planned Anesthesia: Yes Alternatives and Risks of Anesthesia Discussed w Pt/Guardian: Yes Pt/Guardian Understands and Agrees with Anesthesia Plan: Yes PreAnesthesia Questionnaire - Past Health History Medical/Surgical History: Denies Medical/Surgical History Other Gastrointestinal History: 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 - HOME MEDS Home Medications: Home Meds No122/Iron/Folic Acid [ Multi Tablet] 1 tab PO DAILY 08/30/19 [ History] - CURRENT (IN HOUSE) MEDS Current Meds: Current Medications Acetaminophen (Tylenol) 650 mg PO Q4H PRN PRN Reason: Pain (Mild 1-3) and fever Calcium Carbonate/Glycine (Tums) 1,000 mg PO Q2H PRN PRN Reason: Indigestion Diphtheria/Tetanus/Acell Pertussis (Adacel) 0.5 ml IM .ONCE ONE Stop: 08/31/19 09:01 Lactated Ringer's (Ringers, Lactated) 1,000 mls @ 100 mls/hr IV ASDIRECTED YASHIRA Oxytocin/Lactated Ringer's (Pitocin In Lr 10 Units/1,000 Ml) 10 unit in 1,000 mls @ 12 mls/hr IV TITRATE YASHIRA; Protocol Oxytocin/Lactated Ringer's (Pitocin In Lr 10 Units/1,000 Ml) 10 unit in 1,000 mls @ 100 mls/hr IV .CONTINUOUS YASHIRA Nalbuphine HCl (Nubain) 10 mg IVPUSH Q2H PRN PRN Reason: Pain Ondansetron HCl (Zofran) 4 mg IVPUSH Q4H PRN PRN Reason: Nausea/Vomiting Sodium Chloride (Saline Flush) 10 ml FLUSH ASDIRECTED PRN PRN Reason: Keep Vein Open
[2019-08-30] MEDS ORDERED: Phenylephrine 1 MG in Sodium Chloride 0.9% 10 ML IV PRN (09:45)
[2019-08-30] MEDS: Lactated Ringers 1,000 ML IV SCH ×5 (10:22→20:08)
[2019-08-30] MEDS: fentaNYL 100 MCG/2 ML SDV EPIDUR PRN ×2 (10:56→19:57)
[2019-08-30] MEDS: Bupivacaine/fentaNYL/NS 100 ML Bag EPIDUR SCH ×2 (10:56→19:49)
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
--- NOTE | 2019-08-30 22:31 | PCM.SN ---
- Free Text/Narrative Note: Delivery note: Emelyn is a 34-year-old 3 now para 3003 female who is admitted on the a.m. of 08/30/2019 for elective induction of labor at 39-4/7 weeks gestational age with an REMEDIOS of 09/02/2019.The patient is noted to have some uterine irritability with contractions every 3-5 minutes upon admission. She underwent artificial rupture membranes induction and later had Pitocin augmentation. Pain control was laboring epidural for analgesia. She progressed slowly to approximately 6-7 cm then more rapidly to complete. She pushed for approximately 20 minutes and delivered a viable, choudhary, female infant with Apgars of 8 and 9, length was 21 inches and a weight of 4140 g (9 lbs. 2 oz.) at 2209 hrs. on 08/30/2019. Delivered in a left occiput anterior position. Nose and mouth were bulb suctioned and the baby was placed on mom's abdomen. The baby was warmed and dried. Nose and mouth were again bulb suctioned. IV Pitocin was increased to 500 mL an hour to facilitate increasing her to decrease likelihood of bleeding. The umbilical cord was allowed to pulsate for approximately 2 minutes and then was clamped 2 and cut by the patient herself. The umbilical cord had 3 vessels. Cord blood was obtained. The perineum remained intact with exception of a few small superficial abrasions. No suturing was required. Placenta delivered in a Corea presentation at 2212 hrs., appeared intact, complete and was discarded per patient desire. Patient had approximately 100 mL of blood loss. Patient plans to breast-feed. Condition: Good. TeleHealth - TeleHealth Patient Service Facility: [facility]: [facility] Informed Consent: Telemedicine Audio/Visual Informed Consent: The risks, benefits, and alternatives to the telehealth visit were explained to the patient and the patient consented to this modality of care. The telehealth visit was carried out via a secure, web-based conferencing system. This telemedicine service was a real-time, two-way interactive video and communication between the patient and the provider. All the parties involved were identified and approved by the patient prior to the visit. Any physical exam was assisted by the patient. Unless noted otherwise, the provider was located at their usual clinic location , and the patient was at their place of residence. Patient identity was confirmed by having the patient state their name and date of . All communications with the patient (verbal, audiovisual, and written) were documented in the patients medical record per documentation standards.
[2019-08-30] MEDS ORDERED: Witch Hazel Medicated Pads 40/Jar TOP PRN (23:36)
[2019-08-30] MEDS ORDERED: Docusate Sodium 100 MG Cap PO PRN (23:36)
[2019-08-30] MEDS ORDERED: Benzocaine/Menthol 20%-0.5% Spray 56 GM Canister TOP PRN (23:36)
[2019-08-31] MEDS: Ibuprofen 600 MG Tab PO PRN ×2 (02:10→07:46)
--- NOTE | 2019-08-31 08:15 | PCM48HPAN ---
Post Anesthesia Note - EVALUATION WITHIN 48HRS OF ANESTHETIC Vital Signs in Normal Range: Yes Patient Participated in Evaluation: Yes Respiratory Function Stable: Yes Airway Patent: Yes Cardiovascular Function Stable: Yes Hydration Status Stable: Yes Pain Control Satisfactory: Yes Nausea and Vomiting Control Satisfactory: Yes Mental Status Recovered: Yes Vital Signs: Last Vital Signs Temp 99.3 F 08/31/19 04:00 Pulse 63 08/31/19 04:00 Resp 18 08/31/19 04:00 BP 106/60 08/31/19 04:00 Pulse Ox 98 08/31/19 04:00
[2019-08-31] MEDS ORDERED: Measles, Mumps & Rubella Vaccine 0.5 ML SDV SUBCUT ONE (09:00)
[2019-08-31] MEDS ORDERED: Prenatal Multivitamin with Calcium/Folic Acid/Iron Tab PO SCH (09:00)
[2019-08-31] MEDS ORDERED: Diphtheria,Pertussis(Acell),Tetanus Vaccine 0.5 ML Syringe IM ONE (09:00)
--- NOTE | 2019-08-31 09:30 | PCM.SN ---
- Free Text/Narrative Note: PPD #1 No concerns. Minimal lochia, voiding well. Abdomen-soft, NT with uterus at Umb. legso-NT A/P: PPD#1 normal recovery-Home soon per pt. desire. TeleHealth - TeleHealth Patient Service Facility: [facility]: [facility] Informed Consent: Telemedicine Audio/Visual Informed Consent: The risks, benefits, and alternatives to the telehealth visit were explained to the patient and the patient consented to this modality of care. The telehealth visit was carried out via a secure, web-based conferencing system. This telemedicine service was a real-time, two-way interactive video and communication between the patient and the provider. All the parties involved were identified and approved by the patient prior to the visit. Any physical exam was assisted by the patient. Unless noted otherwise, the provider was located at their usual clinic location , and the patient was at their place of residence. Patient identity was confirmed by having the patient state their name and date of . All communications with the patient (verbal, audiovisual, and written) were documented in the patients medical record per documentation standards.
[2019-08-31] MEDS ORDERED: Ibuprofen 600 MG Tab PO PRN (10:00)
--- NOTE | 2019-08-31 10:05 | PCM.DCSUM1 ---
Discharge Summary - Hospital Course Free Text/Narrative:: Emelyn is a 34-year-old 3 now para 3003 female who is admitted on the a.m. of 08/30/2019 for elective induction of labor at 39-4/7 weeks gestational age with an REMEDIOS of 09/02/2019.The patient is noted to have some uterine irritability with contractions every 3-5 minutes upon admission. She underwent artificial rupture membranes induction and later had Pitocin augmentation. Pain control was laboring epidural for analgesia. She progressed slowly to approximately 6-7 cm then more rapidly to complete. She pushed for approximately 20 minutes and delivered a viable, choudhary, female infant with Apgars of 8 and 9, length was 21 inches and a weight of 4140 g (9 lbs. 2 oz.) at 2209 hrs. on 08/30/2019. Delivered in a left occiput anterior position. Nose and mouth were bulb suctioned and the baby was placed on mom's abdomen. The baby was warmed and dried. Nose and mouth were again bulb suctioned. IV Pitocin was increased to 500 mL an hour to facilitate increasing her to decrease likelihood of bleeding. The umbilical cord was allowed to pulsate for approximately 2 minutes and then was clamped 2 and cut by the patient herself. The umbilical cord had 3 vessels. Cord blood was obtained. The perineum remained intact with exception of a few small superficial abrasions. No suturing was required. Placenta delivered in a Corea presentation at 2212 hrs., appeared intact, complete and was discarded per patient desire. Patient had approximately 100 mL of blood loss. Patient plans to breast-feed. patient's vital signs stable, she is voiding well and is nursing without problems other than severe uterine cramps that occur with nursing. She is desiring something stronger and has used Percocet along with ibuprofen the past for this. She is desiring discharge after 24 hours hospitalization. Discharge instructions are given. Condition: Good. Diagnosis: Stroke: No - Discharge Data Discharge Date: 08/31/19 Discharge Disposition: Home, Self-Care 01 Condition: Good - Referral to Home Health Primary Care Physician: Nakul Eaton MD - Patient Instructions Diet: Regular Diet as Tolerated (Nursing diet with increase in calories and calcium is recommended) Activity: As Tolerated (No intercourse or tampons until bleeding resolves) Driving: May Drive Today Showering/Bathing: May Shower (September take a bath) Notify Provider of: Fever, Increased Pain, Swelling and Redness, Nausea and/or Vomiting - Discharge Plan Home Medications: Home Meds No122/Iron/Folic Acid [ Multi Tablet] 1 tab PO DAILY 08/30/19 [ History] Acetaminophen/oxyCODONE [Percocet 325-5 MG] 2 tab PO Q4H PRN tablet 08/31/19 [ Rx] Ibuprofen [Motrin] 600 mg PO Q4H PRN tablet 08/31/19 [Rx] Referrals: Nakul Eaton MD [Primary Care Provider] - ([facility] - Discharge Summary/Plan Comment DC Time >30 min.: No Discharge Summary/Plan Comment: Discharge instructions: 1. Discharge home 2. Diet, activity and follow-up discussed with patient. Recommend nursing diet with increased calories and calcium. 3. Precautions given concern increased pain, bleeding, temperature, signs/ symptoms of DVT/PE. 4. Medications per home medication was printed, discussed with and given to the patient. 5. Return to clinic-Dr. Eaton[facility] in 2 weeks. Diagnosis: Term -delivered Condition: Good - Patient Data Vitals - Most Recent: Last Vital Signs Temp 36.9 C 08/31/19 09:00 Pulse 64 08/31/19 09:00 Resp 16 08/31/19 09:00 BP 131/84 08/31/19 09:00 Pulse Ox 98 08/31/19 09:00 Weight - Most Recent: 103.102 kg I&O - Last 24 hours: Intake & Output 08/30/19 08/31/19 08/31/19 22:59 06:59 14:59 Intake Total 320 3000 Output Total 1200 850 Balance -880 2150 Lab Results - Last 24 hrs: Laboratory Results - last 24 hr 08/30/19 Range/Units 08:40 RPR Non-reactive (NONREACTIVE) Med Orders - Current: Current Medications Acetaminophen (Tylenol) 650 mg PO Q4H PRN PRN Reason: mild pain or fever Last Admin: 08/31/19 04:11 Dose: 650 mg Benzocaine/Menthol (Dermoplast Pain Relief [place]) 0 gm TOP ASDIRECTED PRN PRN Reason: Perineal Comfort Measure Last Admin: 08/31/19 02:12 Dose: 1 canister Docusate Sodium (Colace) 100 mg PO BID PRN PRN Reason: Constipation Ibuprofen (Motrin) 600 mg PO Q4H PRN PRN Reason: Pain Oxycodone/Acetaminophen (Percocet 325-5 Mg) 2 tab PO Q4H PRN PRN Reason: Pain Prenat Multivit/Cherry Cutter/Iron/Folic Ac ( Plus Iron) 1 each PO DAILY YASHIRA Last Admin: 08/31/19 09:01 Dose: 1 each Witch Charline (Tucks) 1 pad TOP ASDIRECTED PRN PRN Reason: Perineal Comfort Measure Last Admin: 08/31/19 02:12 Dose: 1 container Discontinued Medications Acetaminophen (Tylenol) 650 mg PO Q4H PRN PRN Reason: Pain (Mild 1-3) and fever Calcium Carbonate/Glycine (Tums) 1,000 mg PO Q2H PRN PRN Reason: Indigestion Diphtheria/Tetanus/Acell Pertussis (Adacel) 0.5 ml IM .ONCE ONE Stop: 08/31/19 09:01 Ephedrine Sulfate (Ephedrine Sulfate) 5 mg IVPUSH ASDIRECTED PRN PRN Reason: Hypotension Fentanyl (Sublimaze) 100 mcg EPIDUR Q3H PRN PRN Reason: Pain Last Admin: 08/30/19 19:57 Dose: 100 mcg Fentanyl/Bupivacaine HCl (Fentanyl/Bupivacaine/Ns 2 Mcg-0.125% 100 Ml) 100 ml EPIDUR ASDIRECTED [facility] Last Admin: 08/30/19 19:49 Dose: 100 ml Lactated Ringer's (Ringers, Lactated) 1,000 mls @ 100 mls/hr IV ASDIRECTED [facility] Last Admin: 08/30/19 20:08 Dose: 100 mls/hr Oxytocin/Lactated Ringer's (Pitocin In Lr 10 Units/1,000 Ml) 10 unit in 1,000 mls @ 12 mls/hr IV TITRATE YASHIRA; Protocol Last Titration: 08/30/19 19:25 Dose: 14 munits/min, 84 mls/hr Oxytocin/Lactated Ringer's (Pitocin In Lr 10 Units/1,000 Ml) 10 unit in 1,000 mls @ 100 mls/hr IV .CONTINUOUS [facility] Phenylephrine HCl 1 mg/ Sodium (Chloride) 10.1 mls @ 1 mls/sec IV TITRATE PRN; Protocol PRN Reason: see comment Ibuprofen (Motrin) 600 mg PO Q4H PRN PRN Reason: Mild pain or fever Last Admin: 08/31/19 07:46 Dose: 600 mg Measles/Mumps/Rubella Vaccine Live (M-M-R Ii Vaccine) 0.5 ml SUBCUT .ONCE ONE Stop: 08/31/19 09:01 Nalbuphine HCl (Nubain) 10 mg IVPUSH Q2H PRN PRN Reason: Pain Ondansetron HCl (Zofran) 4 mg IVPUSH Q4H PRN PRN Reason: Nausea/Vomiting Ondansetron HCl (Zofran) 4 mg IVPUSH ONETIME PRN PRN Reason: Nausea/Vomiting Sodium Chloride (Saline Flush) 10 ml FLUSH ASDIRECTED PRN PRN Reason: Keep Vein Open
[2019-08-31] MEDS: Acetaminophen/oxyCODONE 325-5 MG Tab PO PRN ×2 (10:10→14:58)
[2019-08-31 15:47] VITALS: BP 115/69; PULSE 70
== END 2019-08-31 16:55 | disposition home or self-care (01) | DRG 560 ==
LOC: JD.OB 07:42 → OBSVTOIN 22:09 → JD.OB 22:09
PROVIDERS: ADMIT Obstetrics & Gynecology; ATTEND Obstetrics & Gynecology
PROC: 10E0XZZ Delivery of Products of Conception, External Approach (ICD-10-PCS; principal; 2019-08-30)
PROC: 10907ZC Drainage of Amniotic Fluid, Therapeutic from Products of Conception, Via Natural or Artificial Opening (ICD-10-PCS; 2019-08-30)
PROC: 3E0R3BZ Introduction of Anesthetic Agent into Spinal Canal, Percutaneous Approach (ICD-10-PCS; 2019-08-30)
PROC: 00HU33Z Insertion of Infusion Device into Spinal Canal, Percutaneous Approach (ICD-10-PCS; 2019-08-30)
DX: O80 Encounter for full-term uncomplicated delivery (principal); Z37.0 Single live birth; Z3A.39 39 weeks gestation of pregnancy; Z88.5 Allergy status to narcotic agent; Z88.1 Allergy status to other antibiotic agents; Z88.8 Allergy status to other drugs, medicaments and biological substances; Z87.891 Personal history of nicotine dependence; Z90.49 Acquired absence of other specified parts of digestive tract; Z85.828 Personal history of other malignant neoplasm of skin
CPT/HCPCS: 36415; 51702; 59025; 59409; 85025; 86592; 90471; 90707; 90715; A9270-GY; J2590; J3010; J3490; J7120

== ENCOUNTER 2019-10-20 13:33 | Emergency (ER) | payer BC, MEDICAID ==
[2019-10-20 13:56] VITALS: BP 131/94; PULSE 77
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
== END 2019-10-20 14:17 | disposition home or self-care (01) ==
LOC: JD.ED 13:33
DX: K04.7 Periapical abscess without sinus (principal); K02.9 Dental caries, unspecified; F17.210 Nicotine dependence, cigarettes, uncomplicated; Z88.8 Allergy status to other drugs, medicaments and biological substances; Z88.5 Allergy status to narcotic agent; Z91.048 Other nonmedicinal substance allergy status; Z88.1 Allergy status to other antibiotic agents
CPT/HCPCS: 99282; 99283

== ENCOUNTER 2019-12-03 16:06 | Emergency (ER) | payer SELFPAY ==
[2019-12-03 16:17] VITALS: BP 102/77; PULSE 78
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
--- NOTE | 2019-12-04 07:49 | CR ---
Right clavicle: 2 views of the right clavicle were obtained. Comparison: No prior clavicle study is available. No fracture or other bony abnormality is appreciated. Impression: 1. No abnormality is identified on 2 view right clavicle exam. Diagnostic code #1 This report was dictated in MDT
--- NOTE | 2019-12-04 07:59 | CR ---
Right scapula: 2 views centered to the right scapula were obtained. Comparison: No previous study. No discrete fracture or other bony abnormality is appreciated. Impression: 1. Nothing acute is seen on 2 view right scapula exam. Diagnostic code #1 This report was dictated in MDT
--- NOTE | 2019-12-04 08:00 | CR ---
Right shoulder: 3 views of the right shoulder were obtained. Comparison: No prior right shoulder study. Glenohumeral joint and acromioclavicular joint appears unremarkable. No fracture, dislocation or other bony abnormality is appreciated. Impression: 1. No abnormality is appreciated on 3 view right shoulder study. Diagnostic code #1 This report was dictated in MDT
== END 2019-12-03 17:35 | disposition home or self-care (01) ==
LOC: JD.ED 16:06
DX: S40.011A Contusion of right shoulder, initial encounter (principal); F17.210 Nicotine dependence, cigarettes, uncomplicated; Z88.1 Allergy status to other antibiotic agents; Z91.048 Other nonmedicinal substance allergy status; Z88.6 Allergy status to analgesic agent; W10.9XXA Fall (on) (from) unspecified stairs and steps, initial encounter
CPT/HCPCS: 73000-26-RT; 73000-RT; 73010-26-RT; 73010-RT; 73030-26-RT; 73030-RT; 99283; 99283-25

== ENCOUNTER 2020-09-30 07:35 | Inpatient (IN) | payer MEDICAID ==
[~2020-09-30 07:35] MED LIST changes: -Lidocaine 1.5% with EPINEPHrine 1:200,000 5 ML Amp ONE
[2020-09-30] MEDS ORDERED: Sodium Chloride 0.9% 10 ML Syringe FLUSH PRN (08:49)
[2020-09-30] MEDS ORDERED: Nalbuphine 10 MG/1 ML Vial IVPUSH PRN (08:49)
[2020-09-30] MEDS ORDERED: Oxytocin/Lactated Ringers 10 UNIT/1,000 ML BAG IV SCH ×2 (09:00)
[2020-09-30] MEDS: Lactated Ringers 1,000 ML IV SCH ×4 (09:15→16:01)
[2020-09-30] MEDS ORDERED: ePHEDrine 50 MG/ML SDV IVPUSH PRN (09:48)
[2020-09-30] MEDS ORDERED: fentaNYL 100 MCG/2 ML SDV EPIDUR PRN (09:48)
[2020-09-30] MEDS ORDERED: diphenhydrAMINE 50 MG/ML SDV IVPUSH PRN (09:48)
[2020-09-30] MEDS: Bupivacaine/fentaNYL/NS 100 ML Bag EPIDUR PRN ×2 (10:04→15:57)
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
--- NOTE | 2020-09-30 17:03 | PCM.PNLD ---
Labor Progress Note - VS & Meds Vital Signs: Last Vital Signs Temp 36.4 C 09/30/20 08:00 Pulse 78 09/30/20 08:00 Resp 14 09/30/20 08:00 BP 128/74 09/30/20 08:00 Pulse Ox 98 09/30/20 08:00 Active Medications: Current Medications Diphenhydramine HCl (Diphenhydramine 50 Mg/Ml Sdv) 25 mg IVPUSH Q6H PRN PRN Reason: pruritis Ephedrine Sulfate (Ephedrine 50 Mg/Ml Sdv) 5 mg IVPUSH ASDIRECTED PRN PRN Reason: Hypotension Fentanyl (Fentanyl 100 Mcg/2 Ml Sdv) 100 mcg EPIDUR Q3H PRN PRN Reason: Pain Last Admin: 09/30/20 10:05 Dose: 100 mcg Documented by: Fentanyl/Bupivacaine HCl (Bupivacaine/Fentanyl/Ns 100 Ml Bag) 100 ml EPIDUR ASDIRECTED PRN PRN Reason: Pain Last Admin: 09/30/20 15:57 Dose: 100 ml Documented by: Lactated Ringer's (Ringers, Lactated) 1,000 mls @ 100 mls/hr IV ASDIRECTED YASHIRA Last Admin: 09/30/20 16:01 Dose: 999 mls/hr Documented by: Oxytocin/Lactated Ringer's (Pitocin In Lr 10 Units/1,000 Ml) 10 unit in 1,000 mls @ 100 mls/hr IV .CONTINUOUS YASHIRA Oxytocin/Lactated Ringer's (Pitocin In Lr 10 Units/1,000 Ml) 10 unit in 1,000 mls @ 12 mls/hr IV TITRATE YASHIRA; Protocol Last Titration: 09/30/20 16:20 Dose: 2 munits/min, 12 mls/hr Documented by: Nalbuphine HCl (Nalbuphine 10 Mg/1 Ml Vial) 10 mg IVPUSH Q2H PRN PRN Reason: Pain Sodium Chloride (Sodium Chloride 0.9% 10 Ml Syringe) 10 ml FLUSH ASDIRECTED PRN PRN Reason: Keep Vein Open - Uterine Contractions Contraction Intensity: Moderate to Strong - Monitoring Heart Rate (FHR) Variability: Moderate (6-25 bmp) - Vaginal Exam Dilation (cm): 10 Effacement (Percent): 100 Station: -2 - Labor Progress (Free Text) Labor Progress: Progressing well. Had some deep variable decelerations with contractions but good variability and good progress. Pushing well now. Anticipate . Monitor FHT closely.
--- NOTE | 2020-09-30 17:43 | PCM.SN.2 ---
- Free Text/Narrative Note: Stage I - Patient presented with SROM. Aumented with pitocin. Progressed to complete with overall reassuring heart tones. Epidural for anesthesia. Stage II - of viable male, 1716. 8#15oz, 8/9 APGARS. head delivered in controlled manner over intact perineum. Body and shoulders atraumatically. Positive cry. Cord clamped and cut. Stage III - of intact placenta. 3vc. No laceration. EBL 125.
[2020-09-30] MEDS ORDERED: Benzocaine/Menthol 20%-0.5% Spray 56 GM Canister TOP PRN (17:51)
[2020-09-30] MEDS ORDERED: Acetaminophen 325 MG Tab PO PRN (17:51)
[2020-09-30] MEDS ORDERED: Docusate Sodium 100 MG Cap PO PRN (17:51)
[2020-09-30] MEDS ORDERED: Witch Hazel Medicated Pads 40/Jar TOP PRN (17:51)
[2020-09-30] MEDS: Ibuprofen 600 MG Tab PO PRN (18:21)
[2020-09-30] MEDS: Acetaminophen/oxyCODONE 325-5 MG Tab PO PRN (22:14)
[2020-10-01] MEDS: Ibuprofen 600 MG Tab PO PRN (01:40)
[2020-10-01] MEDS: Acetaminophen/oxyCODONE 325-5 MG Tab PO PRN (04:14)
--- NOTE | 2020-10-01 05:27 | PCM48HPAN ---
Post Anesthesia Note - EVALUATION WITHIN 48HRS OF ANESTHETIC Vital Signs in Normal Range: Yes Patient Participated in Evaluation: Yes Respiratory Function Stable: Yes Airway Patent: Yes Cardiovascular Function Stable: Yes Hydration Status Stable: Yes Pain Control Satisfactory: Yes Nausea and Vomiting Control Satisfactory: Yes Mental Status Recovered: Yes Vital Signs: Last Vital Signs Temp 36.4 C 09/30/20 08:00 Pulse 78 09/30/20 08:00 Resp 14 09/30/20 08:00 BP 128/74 09/30/20 08:00 Pulse Ox 98 09/30/20 08:00 - COMMENTS/OBSERVATIONS Free Text/Narrative:: no anesthesia complications noted
[2020-10-01 08:13] VITALS: BP 143/78; PULSE 66
--- NOTE | 2020-10-01 09:16 | PCM.DCSUM1 ---
Discharge Summary - Hospital Course Free Text/Narrative:: Emelyn is a 35-year-old 4 now para 4-0-0-4 white female who presented to labor and delivery with SROM. Stage I - Patient presented with SROM. Aumented with pitocin. Progressed to complete with overall reassuring heart tones. Epidural for anesthesia. Stage II - of viable male, 1716. 8#15oz, 8/9 APGARS. head delivered in controlled manner over intact perineum. Body and shoulders atraumatically. Positive cry. Cord clamped and cut. Stage III - of intact placenta. 3vc. No laceration. EBL 125. patient had some social concerns and that her 1-year-old child has not had any consistent care as her significant other is not supportive to the point of taking off time from work to take care of her. Patient is desiring discharge prior to 24 hours for the reason of taking care of her 1-year-old. Her baby is having blood sugar problems and is on IV fluids. Patient herself is doing well. Discharge instructions are given. Condition: Good Diagnosis: Stroke: No - Discharge Data Discharge Date: 10/01/20 Discharge Disposition: Home, Self-Care 01 Condition: Good - Referral to Home Health Primary Care Physician: Nakul Eaton MD - Patient Summary/Data Consults: Consultations 10/01/20 07:41 Consult to Case Management/[employer] [CONS] Routine - Patient Instructions Diet: Regular Diet as Tolerated (Nursing diet with increased calories and calcium as recommended) Activity: As Tolerated (No intercourse or tampons until bleeding resolves) Driving: May Drive Today Showering/Bathing: May Shower (May take a bath) Notify Provider of: Fever, Increased Pain, Swelling and Redness, Nausea and/or Vomiting - Discharge Plan Prescriptions/Med Rec: Ibuprofen [Motrin] 600 mg PO Q6H PRN #60 tablet PRN Reason: Mild pain or fever Home Medications: Home Meds Pnv No.95/Ferrous Fum/Folic AC [ Vitamin Tablet] 1 tab PO DAILY 09/30/20 [History] Acetaminophen/oxyCODONE [Percocet 325-5 MG] 1 tab PO Q6H PRN tablet 10/01/20 [Rx] Ibuprofen [Motrin] 600 mg PO Q6H PRN #60 tablet 10/01/20 [Rx] Patient Handouts: , and Self-Care, Breast Engorgement, Care After Vaginal Delivery Referrals: Nakul Eaton MD [Primary Care Provider] - (Return to clinic2 weeksDrJoni Eaton.) - Discharge Summary/Plan Comment DC Time >30 min.: No Discharge Summary/Plan Comment: Discharge instructions: 1. Discharge home 2. Diet, activity and follow-up discussed with patient. Recommend nursing diet with increased calories and calcium. 3. Precautions given concern increased pain, bleeding, temperature, signs/symptoms of DVT/PE. 4. Medications per home medication was printed, discussed with and given to the patient. 5. Return to clinic-Dr. Eaton[facility] in 2 weeks. Diagnosis: 1. Term -delivered 2. History of gestational diabetes 3. Less than optimal compliance. Condition: Good - Patient Data Vitals - Most Recent: Last Vital Signs Temp 36.7 C 10/01/20 07:53 Pulse 66 10/01/20 07:53 Resp 16 10/01/20 07:53 BP 143/78 H 10/01/20 07:53 Pulse Ox 99 10/01/20 07:53 Weight - Most Recent: 106.141 kg I&O - Last 24 hours: Intake & Output 09/30/20 10/01/20 10/01/20 22:59 06:59 14:59 Intake Total 4150 Output Total 103" Balance 3134 Lab Results - Last 24 hrs: Laboratory Results - last 24 hr 09/30/20 09/30/20 09/30/20 Range/Units 08:15 08:35 09:08 WBC (3.98-10.04) K/mm3 RBC (3.98-5.22) M/mm3 Hgb (11.2-15.7) gm/dl Hct (34.1-44.9) % MCV (79.4-94.8) fl MCH (25.6-32.2) pg MCHC (32.2-35.5) g/dl RDW Std Deviation (36.4-46.3) fL Plt Count (182-369) K/mm3 MPV (9.4-12.3) fl Neut % (Auto) (34.0-71.1) % Lymph % (Auto) (19.3-51.7) % [place] % (Auto) (4.7-12.5) % Eos % (Auto) (0.7-5.8) Baso % (Auto) (0.1-1.2) % Neut # (Auto) (1.56-6.13) K/mm3 Lymph # (Auto) (1.18-3.74) K/mm3 [place] # (Auto) (0.24-0.36) K/mm3 Eos # (Auto) (0.04-0.36) K/mm3 Baso # (Auto) (0.01-0.08) K/mm3 POC Glucose (70-99) mg/dL Urine Opiates Screen Negative (OFVLWT=613) Ur Buprenorphine Scrn Negative (CUTOFF=10) Ur Oxycodone Screen Negative (JCO6YD=453) Urine Methadone Screen Negative (THOTKG=671) Ur Propoxyphene Screen Negative (OMCYBG=493) Ur Barbiturates Screen Negative (LGHZNS=164) Ur Tricyclics Screen Negative (HKHZNI=459) Ur Phencyclidine Scrn Negative (CUTOFF=25) Ur Amphetamine Screen Negative (BZURHO=387) U Methamphetamines Scrn Negative (IOCPCS=222) U Benzodiazepines Scrn Negative (WJUPCS=727) U Cocaine Metab Screen Negative (AOLUPZ=919) U Marijuana (THC) Screen Negative (CUTOFF=50) RPR Non-reactive (NONREACTIVE) SARS-CoV-2 RNA (ZAIN) Negative (NEGATIVE) Blood Type Gel Antibody Screen 09/30/20 09/30/20 09/30/20 Range/Units 09:08 09:08 10:03 WBC 11.11 H (3.98-10.04) K/mm3 RBC 4.08 (3.98-5.22) M/mm3 Hgb 12.5 (11.2-15.7) gm/dl Hct 37.9 (34.1-44.9) % MCV 92.9 (79.4-94.8) fl MCH 30.6 (25.6-32.2) pg MCHC 33.0 (32.2-35.5) g/dl RDW Std Deviation 49.4 H (36.4-46.3) fL Plt Count 251 (182-369) K/mm3 MPV 10.2 (9.4-12.3) fl Neut % (Auto) 76.5 H (34.0-71.1) % Lymph % (Auto) 16.1 L (19.3-51.7) % [place] % (Auto) 5.6 (4.7-12.5) % Eos % (Auto) 1.2 (0.7-5.8) Baso % (Auto) 0.1 (0.1-1.2) % Neut # (Auto) 8.51 H (1.56-6.13) K/mm3 Lymph # (Auto) 1.79 (1.18-3.74) K/mm3 [place] # (Auto) 0.62 H (0.24-0.36) K/mm3 Eos # (Auto) 0.13 (0.04-0.36) K/mm3 Baso # (Auto) 0.01 (0.01-0.08) K/mm3 POC Glucose 83 (70-99) mg/dL Urine Opiates Screen (IZOJRE=959) Ur Buprenorphine Scrn (CUTOFF=10) Ur Oxycodone Screen (UMP1XQ=296) Urine Methadone Screen (QXYBPJ=235) Ur Propoxyphene Screen (FRQPEO=549) Ur Barbiturates Screen (ZCIVEW=726) Ur Tricyclics Screen (NWWAOF=941) Ur Phencyclidine Scrn (CUTOFF=25) Ur Amphetamine Screen (NKPCZK=002) U Methamphetamines Scrn (MPHHGK=690) U Benzodiazepines Scrn (SKALRI=612) U Cocaine Metab Screen (WCBMWJ=656) U Marijuana (THC) Screen (CUTOFF=50) RPR (NONREACTIVE) SARS-CoV-2 RNA (ZAIN) (NEGATIVE) Blood Type AB POSITIVE Gel Antibody Screen Negative 09/30/20 09/30/20 10/01/20 Range/Units 14:30 16:22 07:19 WBC (3.98-10.04) K/mm3 RBC (3.98-5.22) M/mm3 Hgb (11.2-15.7) gm/dl Hct (34.1-44.9) % MCV (79.4-94.8) fl MCH (25.6-32.2) pg MCHC (32.2-35.5) g/dl RDW Std Deviation (36.4-46.3) fL Plt Count (182-369) K/mm3 MPV (9.4-12.3) fl Neut % (Auto) (34.0-71.1) % Lymph % (Auto) (19.3-51.7) % [place] % (Auto) (4.7-12.5) % Eos % (Auto) (0.7-5.8) Baso % (Auto) (0.1-1.2) % Neut # (Auto) (1.56-6.13) K/mm3 Lymph # (Auto) (1.18-3.74) K/mm3 [place] # (Auto) (0.24-0.36) K/mm3 Eos # (Auto) (0.04-0.36) K/mm3 Baso # (Auto) (0.01-0.08) K/mm3 POC Glucose 151 H 83 146 H (70-99) mg/dL Urine Opiates Screen (RDAYKX=575) Ur Buprenorphine Scrn (CUTOFF=10) Ur Oxycodone Screen (WMR0JH=407) Urine Methadone Screen (CNFRIL=691) Ur Propoxyphene Screen (YKNQMC=914) Ur Barbiturates Screen (AWTGFT=530) Ur Tricyclics Screen (YCOZRL=470) Ur Phencyclidine Scrn (CUTOFF=25) Ur Amphetamine Screen (RCVXMR=698) U Methamphetamines Scrn (OBXDFK=037) U Benzodiazepines Scrn (JORZHL=326) U Cocaine Metab Screen (DQVFQW=218) U Marijuana (THC) Screen (CUTOFF=50) RPR (NONREACTIVE) SARS-CoV-2 RNA (ZAIN) (NEGATIVE) Blood Type Gel Antibody Screen Med Orders - Current: Current Medications Acetaminophen (Acetaminophen 325 Mg Tab) 650 mg PO Q4H PRN PRN Reason: mild pain or fever Benzocaine/Menthol (Benzocaine/Menthol 20%-0.5% [place] 56 Gm Canister) 0 gm TOP ASDIRECTED PRN PRN Reason: Perineal Comfort Measure Last Admin: 09/30/20 18:22 Dose: 1 can Documented by: Docusate Sodium (Docusate Sodium 100 Mg Cap) 100 mg PO BID PRN PRN Reason: Constipation Ibuprofen (Ibuprofen 600 Mg Tab) 600 mg PO Q6H PRN PRN Reason: Mild pain or fever Last Admin: 10/01/20 01:40 Dose: 600 mg Documented by: Oxycodone/Acetaminophen (Acetaminophen/Oxycodone 325-5 Mg Tab) 1 tab PO Q6H PRN PRN Reason: Pain Last Admin: 10/01/20 04:14 Dose: 1 tab Documented by: Emigdio Olivier (Emigdio Olivier Medicated Pads 40/Jar) 1 pad TOP ASDIRECTED PRN PRN Reason: Perineal Comfort Measure Last Admin: 09/30/20 18:23 Dose: 1 pad Documented by: Discontinued Medications Bupivacaine HCl (Bupivacaine 0.25% 10 Ml Sdv) 10 ml .ROUTE .STK-MED ONE Stop: 09/30/20 00:01 Diphenhydramine HCl (Diphenhydramine 50 Mg/Ml Sdv) 25 mg IVPUSH Q6H PRN PRN Reason: pruritis Ephedrine Sulfate (Ephedrine 50 Mg/Ml Sdv) 5 mg IVPUSH ASDIRECTED PRN PRN Reason: Hypotension Fentanyl (Fentanyl 100 Mcg/2 Ml Sdv) 100 mcg EPIDUR Q3H PRN PRN Reason: Pain Last Admin: 09/30/20 10:05 Dose: 100 mcg Documented by: Fentanyl/Bupivacaine HCl (Bupivacaine/Fentanyl/Ns 100 Ml Bag) 100 ml EPIDUR ASDIRECTED PRN PRN Reason: Pain Last Admin: 09/30/20 15:57 Dose: 100 ml Documented by: Lactated Ringer's (Ringers, Lactated) 1,000 mls @ 100 mls/hr IV ASDIRECTED YASHIRA Last Admin: 09/30/20 16:01 Dose: 999 mls/hr Documented by: Oxytocin/Lactated Ringer's (Pitocin In Lr 10 Units/1,000 Ml) 10 unit in 1,000 mls @ 100 mls/hr IV .CONTINUOUS YASHIRA Oxytocin/Lactated Ringer's (Pitocin In Lr 10 Units/1,000 Ml) 10 unit in 1,000 mls @ 12 mls/hr IV TITRATE YASHIRA; Protocol Last Titration: 09/30/20 16:20 Dose: 2 munits/min, 12 mls/hr Documented by: Nalbuphine HCl (Nalbuphine 10 Mg/1 Ml Vial) 10 mg IVPUSH Q2H PRN PRN Reason: Pain Sodium Chloride (Sodium Chloride 0.9% 10 Ml Syringe) 10 ml FLUSH ASDIRECTED PRN PRN Reason: Keep Vein Open
== END 2020-10-01 09:30 | disposition home or self-care (01) | DRG 807 ==
LOC: JD.OBCHECK 07:35 → JD.OB 07:36 → JD.OBCHECK 08:50 → JD.OB 17:16 → OBSVTOIN 17:16 → JD.OB 17:17
PROVIDERS: ADMIT Obstetrics & Gynecology; ATTEND Obstetrics & Gynecology
PROC: 10E0XZZ Delivery of Products of Conception, External Approach (ICD-10-PCS; principal; 2020-09-30)
PROC: 3E0R3BZ Introduction of Anesthetic Agent into Spinal Canal, Percutaneous Approach (ICD-10-PCS; 2020-09-30)
PROC: 00HU33Z Insertion of Infusion Device into Spinal Canal, Percutaneous Approach (ICD-10-PCS; 2020-09-30)
DX: O48.0 Post-term pregnancy (principal); Z37.0 Single live birth; O99.62 Diseases of the digestive system complicating childbirth; Z20.822 Contact with and (suspected) exposure to COVID-19; O24.429 Gestational diabetes mellitus in childbirth, unspecified control; O76 Abnormality in fetal heart rate and rhythm complicating labor and delivery; K21.9 Gastro-esophageal reflux disease without esophagitis; Z88.1 Allergy status to other antibiotic agents; Z88.6 Allergy status to analgesic agent; Z88.8 Allergy status to other drugs, medicaments and biological substances; Z3A.40 40 weeks gestation of pregnancy
CPT/HCPCS: 01967; 36415; 51702; 59025; 59409; 80306; 82947; 85025; 86592; 86803; 86850; 86900; 86901; A9270-GY; J2590; J3010; J3490; J7120; U0002

== ENCOUNTER 2021-03-22 20:30 | Emergency (ER) | payer MEDICAID ==
[2021-03-22 20:42] VITALS: BP 122/68; PULSE 84
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
[2021-03-22] MEDS ORDERED: Lidocaine 1% 10 ML MDV INJECT ONE (21:07)
[2021-03-22] MEDS ORDERED: Acetaminophen/oxyCODONE 325-5 MG Tab PO ONE (22:10)
--- NOTE | 2021-03-23 06:47 | CR ---
Right foot: 3 views of the right foot were obtained. Comparison: No prior right foot study is available. No fracture, dislocation or other bony abnormality is appreciated. Impression: 1. Nothing acute is seen on right foot exam. Diagnostic code #1 I agree with preliminary report from [facility], finalized on 03/22/21, 10:29 PM DATA MANAGEMENT ASSOCIATE, code 1
--- NOTE | 2021-03-23 06:47 | CR ---
Right ankle: 3 views of the right ankle were obtained. Comparison: No prior ankle study is available. Ankle mortise is symmetric. Very small cortical density is seen off the tip of the medial malleolus most likely due to cortical avulsion injury. This could be acute if patient has symptoms to this area. No additional fracture or other bony abnormality is appreciated. Impression: 1. Minimal cortical injury off the inferior medial malleolus possibly due to acute cortical fracture if patient is symptomatic to this area. 2. Right ankle study is otherwise unremarkable. Diagnostic code #3
== END 2021-03-22 22:40 | disposition home or self-care (01) ==
LOC: JD.ED 20:30
DX: S01.511A Laceration without foreign body of lip, initial encounter (principal); Z88.1 Allergy status to other antibiotic agents; Z88.6 Allergy status to analgesic agent; Z88.5 Allergy status to narcotic agent; Z91.048 Other nonmedicinal substance allergy status; Z86.16 Personal history of COVID-19; Y04.2XXA Assault by strike against or bumped into by another person, initial encounter
CPT/HCPCS: 12011; 73610; 73630; 99284; A9270; 12001; 99283

== ENCOUNTER 2022-06-26 11:51 | Emergency (ER) | payer MEDICAID ==
[2022-06-26 12:03] VITALS: BP 119/80; PULSE 103
[2022-06-26] MEDS ORDERED: Dexamethasone 10 MG/ML SDV IM ONE (12:32)
== END 2022-06-26 12:48 | disposition home or self-care (01) ==
LOC: JD.ED 11:51
DX: J32.9 Chronic sinusitis, unspecified (principal); Z88.1 Allergy status to other antibiotic agents; Z88.8 Allergy status to other drugs, medicaments and biological substances; Z88.5 Allergy status to narcotic agent; Z91.048 Other nonmedicinal substance allergy status; Z72.0 Tobacco use
CPT/HCPCS: 96372; 99283; J1100; 99282